=== PATIENT | male | born 1960 | race Caucasian/White ===

== ENCOUNTER 2020-06-16 11:52 | Inpatient (IN) | payer MEDICAID ==
[~2020-06-16] VITALS: Ht 175.3 cm; Wt 111.1 kg
--- NOTE | 2020-06-16 12:23 | NUR ---
PT IS IN ROOM #2A. DR JUNIOR EVALUATED THE PT.
[2020-06-16 12:29] LABS: BASOPHILS % (AUTO) 0.7 % (0.0-2.0); EOSINOPHILS # (AUTO) 0.1 K/uL (0.0-0.7); EOSINOPHILS % (AUTO) 0.9 % (0.0-7.0); HEMATOCRIT 39.3 % (36.7-47.1); HEMOGLOBIN 12.3 g/dL (12.5-16.3); LYMPHOCYTES # (AUTO) 0.8 K/uL (20.0-40.0); LYMPHOCYTES % (AUTO) 12.1 % (20.5-51.5); MEAN CORPUSCULAR HGB CONC 31 g/dL (32.5-36.3); MEAN CORPUSCULAR VOLUME 63.7 fL (73.0-96.2); MONOCYTES # (AUTO) 0.4 K/uL (2.0-10.0); MONOCYTES % (AUTO) 6.5 % (0.0-11.0); NEUTROPHILS # (AUTO) 5.2 K/uL (1.8-8.9); NEUTROPHILS % (AUTO) 79.8 % (38.5-71.5); PLATELET COUNT (AUTO) 276 K/uL (152-348); RED BLOOD CELL COUNT(AUTO) 6.17 MIL/uL (4.06-5.63); WHITE BLOOD COUNT (AUTO) 6.5 K/uL (3.6-10.2)
[2020-06-16 12:34] LABS: POTASSIUM 4.9 mmol/L (3.5-5.1)
[2020-06-16] MEDS ORDERED: AZITHROMYCIN 500MG/ D5W 250ML IVPB **ER PYXIS ONLY IV ONE (13:11)
[2020-06-16] MEDS ORDERED: CEFTRIAXONE /D5W 50ML IVPB **ER PYXIS IV ONE (13:11)
--- NOTE | 2020-06-16 13:14 | NUR ---
PAGED AOTMP FOR PANEL CALL. 1ST ATTEMPT.
[2020-06-16] MEDS ORDERED: CEFTRIAXONE 1 G in IV DEXTROSE 5% 50 ML IV ONE (13:15)
[2020-06-16] MEDS ORDERED: AZITHROMYCIN IV 500 MG in IV DEXTROSE 5% 250 ML IV ONE (13:15)
--- NOTE | 2020-06-16 13:15 | NUR ---
DR. GOLDMAN SPEAKING W/ ER MD RE PT'S ADMISSION.
--- NOTE | 2020-06-16 14:05 | NUR ---
REPORT WAS GIVEN TO REDEVELOPMENT MANAGER MISHEL. PT WAS TRANSFERED TO ROOM #316.
[2020-06-16 14:59] VITALS: BP 142/84
[2020-06-16] MEDS ORDERED: AZITHROMYCIN IV 500 MG in IV DEXTROSE 5% 250 ML IV SCH (15:00)
[2020-06-16] MEDS ORDERED: HYDROCODONE/APAP 5-325MG TABLET PO PRN (15:00)
[2020-06-16] MEDS ORDERED: ACETAMINOPHEN 325 MG TABLET PO PRN (15:00)
[2020-06-16] MEDS ORDERED: MAGNESIUM HYDROXIDE 30 ML LIQUID UDC PO PRN (15:00)
[2020-06-16] MEDS ORDERED: ONDANSETRON 4 MG/2 ML VIAL IV PRN (15:00)
[2020-06-16] MEDS: DEXAMETHASONE SOD PHOSPHATE 4 MG INJ IV SCH (15:59)
[2020-06-16] MEDS: ENOXAPARIN SODIUM 40 MG/0.4 ML DISP.SYRIN SQ SCH (16:00)
[2020-06-16 20:16] VITALS: BP 135/73
[2020-06-17] VITALS (8 sets, daily range): BP systolic 132–152; BP diastolic 80–86
[2020-06-17 06:40] LABS: BASOPHILS % (AUTO) 0.3 % (0.0-2.0); EOSINOPHILS % (AUTO) 0.1 % (0.0-7.0); HEMATOCRIT 39.1 % (36.7-47.1); HEMOGLOBIN 12.5 g/dL (12.5-16.3); LYMPHOCYTES # (AUTO) 0.5 K/uL (20.0-40.0); MEAN CORPUSCULAR HEMOGLOBIN 20.5 uug (23.8-33.4); MEAN CORPUSCULAR HGB CONC 32 g/dL (32.5-36.3); MONOCYTES # (AUTO) 0.3 K/uL (2.0-10.0); MONOCYTES % (AUTO) 6.6 % (0.0-11.0); NEUTROPHILS # (AUTO) 4.1 K/uL (1.8-8.9); PLATELET COUNT (AUTO) 278 K/uL (152-348); WHITE BLOOD COUNT (AUTO) 4.9 K/uL (3.6-10.2)
[2020-06-17 06:50] LABS: MAGNESIUM 2.7 mg/dL (1.8-2.4)
--- NOTE | 2020-06-17 08:24 | NUR ---
seen by dr Alejandra.
[2020-06-17] MEDS: ENOXAPARIN SODIUM 40 MG/0.4 ML DISP.SYRIN SQ SCH (09:03)
[2020-06-17] MEDS: DEXAMETHASONE SOD PHOSPHATE 4 MG INJ IV SCH (09:04)
--- NOTE | 2020-06-17 11:10 | NUR ---
covid 19 positive, dr ramon aware. patient aware of result, calm. dietary aware of result for tray line.
--- NOTE | 2020-06-17 12:30 | NUR ---
recieved order from dr Dainel regarding convalescent plasma, made aware need to sign order. Dr Solorio will take care/ sign the order tomorrow.
[2020-06-17] MEDS: CEFTRIAXONE 1 G in IV DEXTROSE 5% 50 ML IV SCH (13:53)
[2020-06-17 14:00] LABS: BILIRUBIN,DIRECT 0.1 mg/dL (0.0-0.2); BILIRUBIN,TOTAL 0.4 mg/dL (0.2-1.0); TOTAL PROTEIN, SERUM 7.6 g/dL (6.4-8.2)
--- NOTE | 2020-06-17 14:50 | NUR ---
daughter Tracy called, aware patient status , plan of care per patient request, appreciative of care.
[2020-06-17] MEDS ORDERED: REMDESIVIR (INVESTIGATIONAL) 200 MG in IV NORMAL SALINE 210 ML IV ONE (15:00)
[2020-06-17] MEDS: AZITHROMYCIN IV 500 MG in IV DEXTROSE 5% 250 ML IV SCH (15:14)
--- NOTE | 2020-06-17 16:15 | NUR ---
1st dose rendesivir given as ordered, see vitals as ordered
--- NOTE | 2020-06-17 17:15 | NUR ---
tolerated remdesivir ivpb, denies dizziness , hypotension, bp pulse taken as ordered.
--- NOTE | 2020-06-17 18:16 | NUR ---
appetite fair , still with malaise, tiredness ,minimal cough, no phlegm , mild sob on exertion , brp. voiding well. o2 at 2 l tolerating well. daughter nicole called, concern pt status, emotional support provided, appreciative of care and treatment.
--- NOTE | 2020-06-17 20:00 | NUR ---
PATIENT RECEIVED INTO CARE, LAYING IN BED, TALKING TO FAMILY ON PHONE. PATIENT IS ALERT/ORIENTED X3 AND HAS NO COMPLAINTS OF PAIN OR DISCOMFORT AT THIS TIME. ALL SAFETY, ISOLATION, AND FALL PRECAUTION MEASURES ARE IN PLACE. CALL LIGHT AND PERSONAL ITEMS ARE WITHIN REACH. WILL CONTINUE TO MONITOR AND ASSESS.
[2020-06-18] VITALS: BP 160/84
[2020-06-18 04:35] VITALS: BP 143/84
--- NOTE | 2020-06-18 05:00 | NUR ---
Patient slept throughout night with no complaints of pain or discomfort verbalized or noted/observed by this nurse. All safety, fall, and isolation precautions remain in place. Call light and personal items remain within reach.
[2020-06-18 06:08] LABS: BASOPHILS % (AUTO) 0.3 % (0.0-2.0); EOSINOPHILS % (AUTO) 0.5 % (0.0-7.0); HEMATOCRIT 40.6 % (36.7-47.1); HEMOGLOBIN 12.9 g/dL (12.5-16.3); LYMPHOCYTES # (AUTO) 0.9 K/uL (20.0-40.0); LYMPHOCYTES % (AUTO) 13.5 % (20.5-51.5); MEAN CORPUSCULAR HEMOGLOBIN 20.2 uug (23.8-33.4); MEAN CORPUSCULAR HGB CONC 32 g/dL (32.5-36.3); MEAN CORPUSCULAR VOLUME 63.8 fL (73.0-96.2); MONOCYTES # (AUTO) 0.4 K/uL (2.0-10.0); MONOCYTES % (AUTO) 6.3 % (0.0-11.0); NEUTROPHILS # (AUTO) 5.4 K/uL (1.8-8.9); NEUTROPHILS % (AUTO) 79.4 % (38.5-71.5); PLATELET COUNT (AUTO) 320 K/uL (152-348); RED BLOOD CELL COUNT(AUTO) 6.37 MIL/uL (4.06-5.63); WHITE BLOOD COUNT (AUTO) 6.7 K/uL (3.6-10.2)
[2020-06-18 06:33] LABS: BILIRUBIN,DIRECT 0.1 mg/dL (0.0-0.2); BILIRUBIN,TOTAL 0.3 mg/dL (0.2-1.0); CREATININE 1.1 mg/dL (0.6-1.3); POTASSIUM 4.6 mmol/L (3.5-5.1); TOTAL PROTEIN, SERUM 7.3 g/dL (6.4-8.2)
--- NOTE | 2020-06-18 08:20 | NUR ---
RECEIVED PATIENT LAYING IN BED, AWAKE, ALERT AND ORIENTED TIME 4. NO SIGNS OF RESPIRATORY DISTRESS AT THIS TIME, PATIENT IS SATURATING WELL ON 2 L OF OXYGEN NASAL CANNULA. PATIENT HAS NO COMPLAINTS OF PAIN OR DISCOMFORT AT THIS TIME. IV PATENT AND INTACT ON RIGHT HAND HEP LOCKED. ALL SAFETY AND FALL PRECAUTION MEASURES ARE IN PLACE BED LOCKED AND IN LOWEST POSITION WITH ALARM ACTIVATED. CALL LIGHT AND PERSONAL ITEMS ARE WITHIN REACH. WILL CONTINUE TO MONITOR AND ASSESS.
[2020-06-18] MEDS: DEXAMETHASONE SOD PHOSPHATE 4 MG INJ IV SCH (09:23)
[2020-06-18] MEDS: ENOXAPARIN SODIUM 40 MG/0.4 ML DISP.SYRIN SQ SCH (09:26)
[2020-06-18 10:24] VITALS: BP 138/80
[2020-06-18] MEDS: CEFTRIAXONE 1 G in IV DEXTROSE 5% 50 ML IV SCH (13:21)
--- NOTE | 2020-06-18 15:21 | NUR ---
Took patient's blood pressure prior to starting Remdezivir. Pharmacy was late brining up formulation. BP prior was 138/80 and at the end of infusion was 150/81
[2020-06-18] MEDS: REMDESIVIR (INVESTIGATIONAL) 100 MG in IV NORMAL SALINE 230 ML IV SCH (15:22)
[2020-06-18] MEDS: AZITHROMYCIN IV 500 MG in IV DEXTROSE 5% 250 ML IV SCH (15:56)
[2020-06-18 16:28] VITALS: BP 133/75
--- NOTE | 2020-06-18 16:30 | NUR ---
Patient tolerated administration of Remdezivir well, no signs of distress noted. Will continue to monitor.
--- NOTE | 2020-06-18 18:48 | NUR ---
Patient resting comfortably in bed and talking on the phone, no sign of distress noted at this time. Safety precautions implemented, bed in lowest position and locked and call light and belongings within reach. Will endorse to the oncoming nurse.
--- NOTE | 2020-06-18 19:20 | NUR ---
Patient in bed. AAOx4. Pt denies SOB or pain. Vitals stable on 2L NC saturating WNL. IV on RH 20 heplock is intact and patent. Safety measures in place. Call light within reach. Will continue with the plan of care.
[2020-06-18 20:46] VITALS: BP 144/78
[2020-06-19] VITALS: BP 134/72
[2020-06-19 04:00] VITALS: BP 160/85
[2020-06-19 06:10] LABS: BASOPHILS % (AUTO) 0.4 % (0.0-2.0); EOSINOPHILS % (AUTO) 0.8 % (0.0-7.0); HEMATOCRIT 40.7 % (36.7-47.1); HEMOGLOBIN 12.9 g/dL (12.5-16.3); LYMPHOCYTES % (AUTO) 17.5 % (20.5-51.5); MEAN CORPUSCULAR HEMOGLOBIN 20.4 uug (23.8-33.4); MEAN CORPUSCULAR HGB CONC 32 g/dL (32.5-36.3); MEAN CORPUSCULAR VOLUME 64.4 fL (73.0-96.2); MONOCYTES # (AUTO) 0.5 K/uL (2.0-10.0); MONOCYTES % (AUTO) 8.7 % (0.0-11.0); NEUTROPHILS % (AUTO) 72.6 % (38.5-71.5); PLATELET COUNT (AUTO) 295 K/uL (152-348); RED BLOOD CELL COUNT(AUTO) 6.33 MIL/uL (4.06-5.63); WHITE BLOOD COUNT (AUTO) 5.6 K/uL (3.6-10.2)
[2020-06-19 06:20] LABS: BILIRUBIN,DIRECT 0.1 mg/dL (0.0-0.2); BILIRUBIN,TOTAL 0.3 mg/dL (0.2-1.0); CREATININE 1.1 mg/dL (0.6-1.3); POTASSIUM 4.4 mmol/L (3.5-5.1); TOTAL PROTEIN, SERUM 6.8 g/dL (6.4-8.2)
--- NOTE | 2020-06-19 06:41 | NUR ---
Patient slept throughout the night. Patient is awake and denies any acute distress or pain at this time. Vitals stable. Pt is NSR 61 on tele monitor. Comfort care and needs attended. Safety measures in place. Bed low and locked in position. Call light within reach. Will endorse to the oncoming nurse accordingly.
--- NOTE | 2020-06-19 07:30 | NUR ---
RECIEVED PT LYING IN BED AWAKE, ALERT AND ORIENTEDX4. DENIES OF ANY DISCOMFORT. NO APPARENT RESPIRATORY DISTRESS NOTED. O2SAT 95% ON 2L NC. HR IS SR WITH 1SR DEGREE AVB. NO C/O CHEST PAINS. AFEBRILE.
[2020-06-19] MEDS: DEXAMETHASONE SOD PHOSPHATE 4 MG INJ IV SCH (10:39)
[2020-06-19] MEDS: ENOXAPARIN SODIUM 40 MG/0.4 ML DISP.SYRIN SQ SCH (10:42)
[2020-06-19 12:00] VITALS: BP 145/75
[2020-06-19] MEDS: CEFTRIAXONE 1 G in IV DEXTROSE 5% 50 ML IV SCH (14:26)
[2020-06-19] MEDS: AZITHROMYCIN IV 500 MG in IV DEXTROSE 5% 250 ML IV SCH (15:24)
[2020-06-19] MEDS: REMDESIVIR (INVESTIGATIONAL) 100 MG in IV NORMAL SALINE 230 ML IV SCH (15:24)
[2020-06-19 16:00] VITALS: BP 134/83
[2020-06-19 21:00] VITALS: BP 150/84
[2020-06-20] VITALS (9 sets, daily range): BP systolic 110–168; BP diastolic 74–96
[2020-06-20] MEDS ORDERED: hydrALAZINE HCL 10 MG TABLET PO SCH ×2 (00:45)
[2020-06-20] MEDS ORDERED: hydrALAZINE HCL 10 MG TABLET PO STA (01:11)
--- NOTE | 2020-06-20 01:30 | NUR ---
Patient noted with BP of 168/98, denies pain or any discomfort at this time.MD rodas made aware with order to give Hydralazine 10 mg po x1 , no adverse reaction noted.Will continue to monitor.
[2020-06-20 06:20] LABS: BASOPHILS % (AUTO) 0.3 % (0.0-2.0); EOSINOPHILS % (AUTO) 0.6 % (0.0-7.0); HEMATOCRIT 44.2 % (36.7-47.1); LYMPHOCYTES # (AUTO) 1.1 K/uL (20.0-40.0); LYMPHOCYTES % (AUTO) 14.7 % (20.5-51.5); MEAN CORPUSCULAR HEMOGLOBIN 20.3 uug (23.8-33.4); MEAN CORPUSCULAR HGB CONC 32 g/dL (32.5-36.3); MEAN CORPUSCULAR VOLUME 64.3 fL (73.0-96.2); MONOCYTES # (AUTO) 0.5 K/uL (2.0-10.0); MONOCYTES % (AUTO) 6.8 % (0.0-11.0); NEUTROPHILS # (AUTO) 5.6 K/uL (1.8-8.9); NEUTROPHILS % (AUTO) 77.6 % (38.5-71.5); PLATELET COUNT (AUTO) 365 K/uL (152-348); WHITE BLOOD COUNT (AUTO) 7.2 K/uL (3.6-10.2)
[2020-06-20 06:43] LABS: RED BLOOD CELL COUNT(AUTO) 6.87 MIL/uL (4.06-5.63)
[2020-06-20 06:44] LABS: BILIRUBIN,DIRECT 0.1 mg/dL (0.0-0.2); BILIRUBIN,TOTAL 0.3 mg/dL (0.2-1.0); CREATININE 1.1 mg/dL (0.6-1.3); MAGNESIUM 2.4 mg/dL (1.8-2.4); PHOSPHOROUS 4.3 mg/dL (2.5-4.9); POTASSIUM 4.3 mmol/L (3.5-5.1); TOTAL PROTEIN, SERUM 7.7 g/dL (6.4-8.2)
--- NOTE | 2020-06-20 06:55 | NUR ---
a/w to explain conv plasma to patient so pt can sign consent.
[2020-06-20] MEDS: DEXAMETHASONE SOD PHOSPHATE 4 MG INJ IV SCH (08:10)
[2020-06-20] MEDS: ENOXAPARIN SODIUM 40 MG/0.4 ML DISP.SYRIN SQ SCH (08:11)
[2020-06-20 10:12] LABS: NEUTROPHILS % (MANUAL) 0 % (42-75)
--- NOTE | 2020-06-20 13:11 | NUR ---
Received patient awake in bed in stable condition. Patient continue oxygen via nasal cannula at 2 LPM. not in distress. Patient SAO2- 94%. Patient for convalescent plasma transfusion. Patient consent signed by MD and patient, sent to laboratory. awaiting for response. Patient no complaint of pain/discomfort. Patient continue antibiotic treatment, rocephin and azithromycin for pneumonia/COVID 19. no signs of adverse reaction. Patient on heplock left hand G20. Patient continue on lovenox for prophylaxis. no bleeding noted. will continue monitor
[2020-06-20] MEDS: CEFTRIAXONE 1 G in IV DEXTROSE 5% 50 ML IV SCH (13:56)
[2020-06-20] MEDS: AZITHROMYCIN 250 MG TABLET PO SCH (14:19)
[2020-06-20] MEDS: REMDESIVIR (INVESTIGATIONAL) 100 MG in IV NORMAL SALINE 230 ML IV SCH (14:29)
--- NOTE | 2020-06-20 17:17 | NUR ---
Patient IV infiltrates on right hand, swelling noted. Applied ice pack to the site. Advice to elevate the affected hand. Patient replace new site to right wrist G 22, intact and patent. will continue monitor
--- NOTE | 2020-06-20 17:51 | NUR ---
Patient for type and screen for plasma transfusion. Awaiting for order from laboratory.
--- NOTE | 2020-06-20 20:00 | NUR ---
Patient received into care, laying in bed, watching television. Pt is alert/oriented x4 and has no complaints of pain or discomfort at this time. Pt is aware of convalescent plasma transfusion to take place tonight and has no questions or concerns at this time. Informed consent for blood transfusion is signed and in folder. This nurse confirmed that informed consent for convalescent plasma transfusion is signed and in folder. All safety and fall precaution measures are in place. Call light and personal items are within reach at all times. Will continue to monitor and assess.
--- NOTE | 2020-06-20 21:45 | NUR ---
This nurse spoke with Cata from lab regarding Convalescent Plasma product number not scanning. This nurse confirmed with Cata that each barcode was scanned appropriately but received invalid scan code for product type. Cata advised this nurse to use downtime form to document transfusion. This nurse confirmed use of downtime form for transfusion with Cata and retrieved copy of original form provided to Cata when this nurse obtained plasma product from lab earlier.
--- NOTE | 2020-06-20 22:12 | NUR ---
Transfusion of convalescent plasma started. VS prior to transfusion are: T 98.8 BP 168/85 HR 80 RR 19 O2 94% at 2L/min NC. Will continue to monitor and assess. Addendum: 06/20/20 at 2258 by DOV LEE RN Transfusion started at 75mL/hr.
--- NOTE | 2020-06-20 22:27 | NUR ---
VS 15 min after infusion started: T 98.5 BP 145/86 HR 75 RR 18 O2 95%. Increased infusion to 100mL/hr. Will continue to monitor and assess.
--- NOTE | 2020-06-20 22:30 | NUR ---
This nurse contacted JANEEN Dietz with regard to elevated SBP of 168/85 for this patient. JANEEN Dietz gave new order for 10mg Hydralazine PO Q8h for SBP > 160. This nurse confirmed order with OPERATIONAL RISK MANAGER.
[2020-06-20] MEDS ORDERED: hydrALAZINE HCL 10 MG TABLET PO PRN (22:45)
--- NOTE | 2020-06-20 23:03 | NUR ---
VS 30 min after start of transfusion: T 98.6 BP 139/77 HR 71 RR 17 O2 95% at 2L/min via NC. Increased transfusion rate to 125mL/hr. Will continue to monitor and assess.
[2020-06-21 00:20] VITALS: BP 165/85
[2020-06-21 00:30] VITALS: BP 168/94
--- NOTE | 2020-06-21 00:30 | NUR ---
Convalescent plasma transfusion completed. VS are T 98.3 BP 168/94 HR 68 RR 18 O2 96% 2L/min NC. Will continue to monitor and assess for ASE following transfusion completion.
[2020-06-21 04:30] VITALS: BP 156/90
--- NOTE | 2020-06-21 05:00 | NUR ---
Patient slept intermittently throughout night with no complaints of pain or discomfort verbalized or noted/observed by this nurse. Pt is complaining of not being able to sleep since he was admitted to hospital, stating that this lack of sleep causes his blood pressure to elevate. This nurse advised pt that she would have morning shift follow-up with MD to see if a prescribed PRN sleeping medication can be ordered for him so that he is able to get rest at night. Convalescent plasma in the amount of 217mL was successfully transfused, with no ASE verbalized by patient or noted/observed by this nurse. All safety, fall, and isolation precautions remain in place. Call light and personal items remain within reach at all times.
[2020-06-21 06:18] LABS: BASOPHILS % (AUTO) 0.3 % (0.0-2.0); EOSINOPHILS % (AUTO) 0.7 % (0.0-7.0); HEMATOCRIT 41.1 % (36.7-47.1); LYMPHOCYTES # (AUTO) 1.2 K/uL (20.0-40.0); LYMPHOCYTES % (AUTO) 17.3 % (20.5-51.5); MEAN CORPUSCULAR HEMOGLOBIN 20.2 uug (23.8-33.4); MEAN CORPUSCULAR HGB CONC 32 g/dL (32.5-36.3); MEAN CORPUSCULAR VOLUME 63.6 fL (73.0-96.2); MONOCYTES # (AUTO) 0.4 K/uL (2.0-10.0); NEUTROPHILS # (AUTO) 5.2 K/uL (1.8-8.9); NEUTROPHILS % (AUTO) 75.7 % (38.5-71.5); PLATELET COUNT (AUTO) 297 K/uL (152-348); RED BLOOD CELL COUNT(AUTO) 6.47 MIL/uL (4.06-5.63); WHITE BLOOD COUNT (AUTO) 6.9 K/uL (3.6-10.2)
[2020-06-21 06:30] LABS: ALANINE AMINOTRANSFERASE 139 U/L (16-63); ALKALINE PHOSPHATASE 60 U/L (50-136); ASPARTATE AMINOTRANSFERASE 48 U/L (15-37); BILIRUBIN,DIRECT < 0.1 mg/dL (0.0-0.2); BILIRUBIN,TOTAL 0.3 mg/dL (0.2-1.0); CARBON DIOXIDE 30 mmol/L (21-32); CHLORIDE 102 mmol/L (98-107); GLUCOSE 97 mg/dL (74-106); POTASSIUM 4.4 mmol/L (3.5-5.1); TOTAL PROTEIN, SERUM 7.3 g/dL (6.4-8.2); UREA NITROGEN, BLOOD 14 mg/dL (7-18)
[2020-06-21] MEDS: ENOXAPARIN SODIUM 40 MG/0.4 ML DISP.SYRIN SQ SCH (08:13)
[2020-06-21] MEDS: DEXAMETHASONE SOD PHOSPHATE 4 MG INJ IV SCH (08:14)
[2020-06-21] MEDS: VALSARTAN 80 MG TABLET PO SCH (09:15)
[2020-06-21] MEDS ORDERED: TEMAZEPAM 7.5 MG CAPSULE PO PRN (09:15)
[2020-06-21 12:00] VITALS: BP 151/79
--- NOTE | 2020-06-21 12:01 | NUR ---
received patient in bed, awake and verbally responsive. On Oxygen at 2L via Nasal canula, saturating 95%. Afebrile. No complain of Pain or discomfort. On Contact Isolation for (+) covid19, Proper PPE strictly Observed. Kept clean and comfortable. kept the call light within easy reach. Will continue to monitor.
[2020-06-21] MEDS: CEFTRIAXONE 1 G in IV DEXTROSE 5% 50 ML IV SCH (13:02)
[2020-06-21] MEDS: AZITHROMYCIN 250 MG TABLET PO SCH (14:39)
[2020-06-21] MEDS: REMDESIVIR (INVESTIGATIONAL) 100 MG in IV NORMAL SALINE 230 ML IV SCH (15:10)
[2020-06-21 15:59] VITALS: BP 128/85
--- NOTE | 2020-06-21 16:30 | NUR ---
Remdesevir IV given, tolerated well. No ASE noted. Afebrile. No episode of Hypotension. Will continue to monitor.
--- NOTE | 2020-06-21 18:06 | NUR ---
patient in bed, awake and verbally responsive. On Oxygen at 2L via Nasal canula saturating 96%. No SOB. Afebrile. No complain of Pain or discomfort. Remdesevir IV given, tolerated well. No episode of hypotension, chills or fever. Kept clean and comfortable. Kept clean and comfortable. Will endorse to Oncoming Nurse.
--- NOTE | 2020-06-21 20:00 | NUR ---
Received patient awake and alert. Patient shows no signs or symptoms of distress at this time. Vital signs stable . Afebrile at this time. On 2L NC with no complaints of SOB. NSR on tele monitor. Bed set to lowest position. Call light within reach. Side rails X2 are up. Will continue to monitor patient.
[2020-06-21 20:30] VITALS: BP 128/72
[2020-06-22 00:08] VITALS: BP 131/53
[2020-06-22 04:35] VITALS: BP 132/81
--- NOTE | 2020-06-22 06:01 | NUR ---
Patient shows no signs or symptoms of distress throughout the night. Vital signs stable. Afebrile throughout the shift. NSR on tele monitor. Will endorse patient to day shift nurse in stable condition.
[2020-06-22 07:16] LABS: BASOPHILS % (AUTO) 0.4 % (0.0-2.0); BILIRUBIN,DIRECT 0.1 mg/dL (0.0-0.2); BILIRUBIN,TOTAL 0.3 mg/dL (0.2-1.0); CREATININE 1.1 mg/dL (0.6-1.3); EOSINOPHILS # (AUTO) 0.1 K/uL (0.0-0.7); HEMATOCRIT 40.2 % (36.7-47.1); HEMOGLOBIN 12.6 g/dL (12.5-16.3); LYMPHOCYTES # (AUTO) 1.7 K/uL (20.0-40.0); MEAN CORPUSCULAR HEMOGLOBIN 20.1 uug (23.8-33.4); MEAN CORPUSCULAR HGB CONC 31 g/dL (32.5-36.3); MEAN CORPUSCULAR VOLUME 64.2 fL (73.0-96.2); MONOCYTES # (AUTO) 0.6 K/uL (2.0-10.0); MONOCYTES % (AUTO) 7.7 % (0.0-11.0); NEUTROPHILS # (AUTO) 5.6 K/uL (1.8-8.9); NEUTROPHILS % (AUTO) 69.9 % (38.5-71.5); PLATELET COUNT (AUTO) 311 K/uL (152-348); POTASSIUM 4.7 mmol/L (3.5-5.1); RED BLOOD CELL COUNT(AUTO) 6.26 MIL/uL (4.06-5.63); TOTAL PROTEIN, SERUM 6.8 g/dL (6.4-8.2)
--- NOTE | 2020-06-22 08:00 | NUR ---
Patient is awake, alert and verbally responsive. No signs of distress noted. On Oxygen at 1L via nasal canula, saturating 93%. No complain of Pain or discomfort. Proper PPE strictly Observed for Covid19 (+). Kept clean and comfortable. Will continue to monitor.
[2020-06-22] MEDS: VALSARTAN 80 MG TABLET PO SCH (08:41)
[2020-06-22] MEDS: ENOXAPARIN SODIUM 40 MG/0.4 ML DISP.SYRIN SQ SCH (08:45)
[2020-06-22 09:35] VITALS: BP 132/79
--- NOTE | 2020-06-22 12:17 | NUR ---
Placed patient on Room Air , saturating 92-94%. Will continue to monitor.
[2020-06-22 13:19] LABS: BAND % (MANUAL) 1 % (0-10); LYMPHOCYTES % (MANUAL) 22 % (20-40); MONOCYTES % (MANUAL) 4 % (2-10); NEUTROPHILS % (MANUAL) 73 % (42-75)
[2020-06-22 16:05] VITALS: BP 126/71
--- NOTE | 2020-06-22 17:56 | NUR ---
Patient is awake, alert and verbally responsive. On Room Air saturating 93-94%. No SOB. No complain of Pain or discomfort. kept clean and comfortable. All needs attended and met. Will endorse to Oncoming Nurse.
--- NOTE | 2020-06-22 20:00 | NUR ---
Patient received into care, sitting up in bed, watching television. Patient is alert/oriented x4 and in good spirits, with no complaints of pain or discomfort. BL IV cath sites on right wrist and left AC are patent and intact. All safety, fall, and isolation precautions are in place. Call light and personal items are within reach. Will continue to monitor and assess.
[2020-06-22 20:26] VITALS: BP 130/77
[2020-06-23 00:20] VITALS: BP 141/83
[2020-06-23 04:00] VITALS: BP 138/78
[2020-06-23 04:24] VITALS: BP 164/70
--- NOTE | 2020-06-23 04:25 | NUR ---
This nurse was notified by FREDERIC Molina of elevated SBP, this nurse reassessed pt's BP and found it to be WNL. No further action required.
[2020-06-23 04:30] VITALS: BP 138/78
--- NOTE | 2020-06-23 05:00 | NUR ---
Patient slept throughout night with no complaints of pain or discomfort verbalized to this nurse. All nursing needs were met promptly and patient is warm, dry, and comfortable. All safety, fall, and isolation precautions remain in place. Call light and personal items remain within reach.
[2020-06-23] MEDS: ENOXAPARIN SODIUM 40 MG/0.4 ML DISP.SYRIN SQ SCH (08:41)
[2020-06-23] MEDS: VALSARTAN 80 MG TABLET PO SCH (10:15)
--- NOTE | 2020-06-23 11:00 | NUR ---
Received patient in bed, Pt. is AAO x 4. NO acute distress patinet in RA at this time sating at 96%. All other Vital sings stable. Afebrile. Due medication administered as ordered. IV line on R wrist 22guage and 22guage on L FA intact and as well. Patient in the Process of getting discharged. Stable condition at this time. Safety needs in place and will continue with care.
[2020-06-23 11:40] VITALS: BP 146/84
--- NOTE | 2020-06-23 13:35 | NUR ---
Patient walked with O2 sat. monitoring in room air and O2 sating at 94-96%.
[2020-06-23] MEDS ORDERED: VALS80TA2 PO (13:50)
--- NOTE | 2020-06-23 15:10 | NUR ---
Spoke with Nancy ham regarding patient condition and O2 saturation. CM stated patient ok to be discharged home.
--- NOTE | 2020-06-23 15:20 | NUR ---
Spoke with patient's regarding patient's condition and discussed O2 saturation in room air and patient sating at 94-96% in RA and stable at this time to go home. Informed patient needs to quarantine and isolate to self for 2 weeks. Also informed to protect herself; stated understanding of teaching. Also informed family in case of any change of condition to call or come to ER. thanked for the care that has been provided.
[2020-06-23 16:00] VITALS: BP 141/85
--- NOTE | 2020-06-23 18:48 | NUR ---
Patient educated on self isolation and care for COVID-19, discharge education provided and patient verbalized understanding discharge teaching and stated will stay in quarantine as ordered and signed paper works. All belongings returned; inventory list signed by patient. Vital signs checked before discharge and stable. Afebrile. Patient provided proper PPE and escorted out via w/c. Discharge teaching also provided to and explained prescription orders and administration. N95 mask provided to and informed to wear it at all times. All other questions answered and patient left at 6:35PM.
== END 2020-06-23 18:35 | disposition home or self-care (01) | DRG 137 ==
LOC: ER 12:01 → TELE3 14:02 → MEDSURG3 06-23 09:31
PROVIDERS: ADMIT Internal Medicine
PROC: 30233L1 Transfusion of Nonautologous Fresh Plasma into Peripheral Vein, Percutaneous Approach (ICD-10-PCS; principal; 2020-06-20)
DX: U07.1 COVID-19 (principal); J12.89 Other viral pneumonia; J96.01 Acute respiratory failure with hypoxia; Z68.36 Body mass index [BMI] 36.0-36.9, adult; D64.9 Anemia, unspecified; I10 Essential (primary) hypertension; G47.33 Obstructive sleep apnea (adult) (pediatric); E66.8 Other obesity
CPT/HCPCS: 36415; 70030-TC; 71045; 83615; 83735; 84100; 85025; 85610; 85730; 86140; 86850; 86900; 86901; 87040; 93005; A4663; G0378; J0456; J0696; J1100; J1650; J3490; J7030; J7040; J7050; J7060; P9016-BL; P9017-BL; Q0144; U0003-CS

== ENCOUNTER 2023-09-11 14:49 | Emergency (ER) | payer MEDICAID, OTHER ==
[~2023-09-11] VITALS: Ht 175.3 cm; Wt 111.1 kg
[~2023-09-11 14:49] MED LIST: VALS80TA2 PO
[2023-09-11 15:27] LABS: BASOPHILS % (AUTO) 0.5 % (0.0-2.0); EOSINOPHILS # (AUTO) 0.1 K/uL (0.0-0.7); EOSINOPHILS % (AUTO) 1.6 % (0.0-7.0); HEMATOCRIT 41.2 % (36.7-47.1); HEMOGLOBIN 12.9 g/dL (12.5-16.3); LYMPHOCYTES # (AUTO) 1.5 K/uL (0.8-4.8); LYMPHOCYTES % (AUTO) 18.8 % (20.5-51.5); MEAN CORPUSCULAR HEMOGLOBIN 20.8 uug (23.8-33.4); MEAN CORPUSCULAR HGB CONC 31 g/dL (32.5-36.3); MEAN CORPUSCULAR VOLUME 66.6 fL (73.0-96.2); MONOCYTES # (AUTO) 0.6 K/uL (0.1-1.30); MONOCYTES % (AUTO) 7.9 % (0.0-11.0); NEUTROPHILS # (AUTO) 5.6 K/uL (1.8-8.9); NEUTROPHILS % (AUTO) 71.2 % (38.5-71.5); PLATELET COUNT (AUTO) 148 K/uL (152-348); RED BLOOD CELL COUNT(AUTO) 6.18 MIL/uL (4.06-5.63); RED CELL DISTRIBUTION WIDTH 15.4 % (12.1-16.2); WHITE BLOOD COUNT (AUTO) 7.9 K/uL (3.6-10.2)
[2023-09-11 15:28] LABS: DIFFERENTIAL COMMENT 1
[2023-09-11 16:12] LABS: CALCIUM 9.7 mg/dL (8.5-10.1); CREATININE 0.9 mg/dL (0.6-1.3); POTASSIUM 3.8 mmol/L (3.5-5.1)
[2023-09-11 16:25] LABS: ALBUMIN 3.6 g/dL (3.4-5.0); BILIRUBIN,TOTAL 0.9 mg/dL (0.2-1.0); TOTAL PROTEIN, SERUM 7.8 g/dL (6.4-8.2)
[2023-09-11 16:52] LABS: BAND % (MANUAL) 1 % (0-10); EOSINOPHILS % (MANUAL) 2 % (0-8); LYMPHOCYTES % (MANUAL) 23 % (20-40); MONOCYTES % (MANUAL) 7 % (2-10); NEUTROPHILS % (MANUAL) 67 % (42-75)
[2023-09-11 16:53] LABS: ANISOCYTOSIS 1+; HYPOCHROMASIA 2+
[2023-09-11 16:54] LABS: PLATELET ESTIMATE SLIGHT DECREASED
[2023-09-11 18:02] VITALS: BP 157/84; TEMP 97.8; O2SAT 93
== END 2023-09-11 18:02 | disposition home or self-care (01) ==
LOC: ER 14:49
DX: J20.9 Acute bronchitis, unspecified (principal); R07.89 Other chest pain; Z79.899 Other long term (current) drug therapy
CPT/HCPCS: 36415; 70030-TC; 71045; 83605; 84484; 85025; 87040; A4606; A4663

== ENCOUNTER 2025-02-08 20:00 | Emergency (ER) | payer OTHER ==
[~2025-02-08] VITALS: Ht 175.3 cm; Wt 122.0 kg
[2025-02-08] MEDS ORDERED: MORPHINE SULFATE 4 MG/1 ML DISP.SYRIN ONE (20:37)
[2025-02-08] MEDS ORDERED: ONDANSETRON 4 MG/2 ML VIAL ONE (20:37)
[2025-02-08 20:41] LABS: BASOPHILS % (AUTO) 0.5 % (0.0-2.0); EOSINOPHILS # (AUTO) 0.1 K/uL (0.0-0.7); EOSINOPHILS % (AUTO) 0.6 % (0.0-7.0); HEMATOCRIT 42.9 % (36.7-47.1); HEMOGLOBIN 13.5 g/dL (12.5-16.3); LYMPHOCYTES # (AUTO) 1.9 K/uL (0.8-4.8); MEAN CORPUSCULAR HEMOGLOBIN 20.2 uug (23.8-33.4); MEAN CORPUSCULAR HGB CONC 31 g/dL (32.5-36.3); MEAN CORPUSCULAR VOLUME 64.4 fL (73.0-96.2); MONOCYTES # (AUTO) 0.4 K/uL (0.1-1.30); MONOCYTES % (AUTO) 4.6 % (0.0-11.0); NEUTROPHILS # (AUTO) 6.6 K/uL (1.8-8.9); NEUTROPHILS % (AUTO) 73.3 % (38.5-71.5); PLATELET COUNT (AUTO) 168 K/uL (152-348); RED CELL DISTRIBUTION WIDTH 15.3 % (12.1-16.2)
[2025-02-08] MEDS: MORPHINE SULFATE 4 MG/1 ML DISP.SYRIN IV ONE (20:41)
[2025-02-08] MEDS: ONDANSETRON 4 MG/2 ML VIAL IV ONE (20:43)
[2025-02-08 20:45] LABS: DIFFERENTIAL COMMENT 1; RED BLOOD CELL COUNT(AUTO) 6.66 MIL/uL (4.06-5.63)
[2025-02-08 20:50] LABS: CALCIUM 6.7 mg/dL (8.5-10.1); CARBON DIOXIDE 24 mmol/L (21-32); CHLORIDE 112 mmol/L (98-107); CREATININE 0.6 mg/dL (0.6-1.3); GLUCOSE 157 mg/dL (74-106); SODIUM SERUM 144 mmol/L (136-145); UREA NITROGEN, BLOOD 16 mg/dL (7-18)
[2025-02-08 20:53] LABS: POTASSIUM 3.8 mmol/L (3.5-5.1)
[2025-02-08 20:56] LABS: ALANINE AMINOTRANSFERASE 44 U/L (16-63); ALBUMIN 2.7 g/dL (3.4-5.0); ALKALINE PHOSPHATASE 37 U/L (50-136); ASPARTATE AMINOTRANSFERASE 20 U/L (15-37); BILIRUBIN,DIRECT 0.1 mg/dL (0.0-0.2); BILIRUBIN,TOTAL 0.3 mg/dL (0.2-1.0); TOTAL PROTEIN, SERUM 5.2 g/dL (6.4-8.2)
[2025-02-08] MEDS ORDERED: SWABABLE VALVE TRANSFER SET EA MC ONE (21:27)
[2025-02-08] MEDS ORDERED: IOHEXOL 350 100 ML INFUS..BTL ONE (21:27)
[2025-02-08] MEDS ORDERED: IV NORMAL SALINE 250 ML IV ONE (21:28)
[2025-02-08 22:06] LABS: ANISOCYTOSIS 1+; BAND % (MANUAL) 5 % (0-10); HYPOCHROMASIA 2+; LYMPHOCYTES % (MANUAL) 23 % (20-40); MONOCYTES % (MANUAL) 6 % (2-10); NEUTROPHILS % (MANUAL) 64 % (42-75); PLATELET ESTIMATE SLIGHT DECREASED; REACTIVE LYMPHOCYTES 2 % (0-0)
[2025-02-08] MEDS ORDERED: HYDROMORPHONE 1 MG/1 ML DISP.SYRIN ONE (23:29)
[2025-02-08] MEDS: HYDROMORPHONE 1 MG/1 ML DISP.SYRIN IV ONE (23:31)
[2025-02-09] MEDS ORDERED: HYDR-3972 PO (00:06)
[2025-02-09 00:56] LABS: *BILIRUBIN,URIN NEGATIVE (NEGATIVE); *BLOOD, URINE NEGATIVE (NEGATIVE); *CLARITY,URINE CLEAR (CLEAR); *COLOR,URINE YELLOW (YELLOW); *KETONES,URINE NEGATIVE (NEGATIVE); *PROTEIN,URINE NEGATIVE (NEGATIVE); *UROBILINOGEN,URINE 0.2 E.U./dl (NORMAL); LEUKOCYTE ESTERASE ,URINE NEGATIVE (NEGATIVE); NITRITE, URINE NEGATIVE (NEGATIVE); PH,URINE 5.5 (5.0-8.0); UGLUCOSE NEGATIVE (NEGATIVE)
[2025-02-09 01:16] VITALS: BP 148/73; O2SAT 94
== END 2025-02-09 01:16 | disposition home or self-care (01) ==
LOC: ER 20:00
DX: K80.20 Calculus of gallbladder without cholecystitis without obstruction (principal); R07.9 Chest pain, unspecified; R06.00 Dyspnea, unspecified; Z79.899 Other long term (current) drug therapy
CPT/HCPCS: 99285; 71275; 96374; 76705; 71045; 96375; 80076; 80048; 83690; 85025; 84484 ×3; 36415; 74177; 93005; 81003; 87086; 85007; J1171; J2405; Q9967; J2270; A4606; A4663